=== PATIENT | female | born 1965 | race African-American/Black ===

== ENCOUNTER 2019-01-03 11:56 | Observation (INO) | payer OTHER ==
[2019-01-03 12:42] LABS: #Basophils 0.1 thou/uL (0.0-0.2); #Eosinphils 0.1 thou/uL (0.0-0.7); #Lymphocytes 2.4 thou/uL (1.20-3.40); #Monocytes 0.6 thou/uL (0.11-0.59); #Neutrophils 4.7 thou/uL (1.40-6.50); %Basophils 0.7 % (0.0-1.0); %Lymphocytes 30.4 % (21.0-51.0); %Monocytes 7.5 % (0.0-10.0); %Neutrophils 60.5 % (42.0-75.0); Hemoglobin 13.4 g/dL (12.0-16.0); Mean Corpuscular HGB CONC 32.8 g/dL (32.0-36.0); Mean Corpuscular Hemoglobin 28.4 pg (27.0-31.0); Mean Corpuscular Volume 86.5 fL (78.0-98.0); Mean Platelet Volume 5.8 fL (7.4-10.4); Platelet Count 300 thou/uL (130-400); RBC Distribution Width 13.7 % (11.5-14.5); Red Blood Cell (RBC) Count 4.73 mill/uL (4.20-5.40); White Blood Cell (WBC) Count 7.7 thou/uL (4.8-10.8)
[2019-01-03 12:54] LABS: ALT (SGPT) 16 U/L (8-55); AST (SGOT) 19 U/L (5-34); Alkaline Phosphatase 113 U/L (40-150); Anion Gap 11 mmol/L (10-20); BUN (Urea Nitrogen) 10 mg/dL (9.8-20.1); Bilirubin, Total 0.6 mg/dL (0.2-1.2); Calc. Creatinine Clearance 0 mL/min (70-130); Calcium 9.5 mg/dL (7.8-10.44); Carbon Dioxide 28 mmol/L (22-29); Chloride 105 mmol/L (98-107); Estimated GFR-MDRD 89; Globulin 3.7 g/dL (2.4-3.5); Glucose 97 mg/dL (70-105); Potassium 3.7 mmol/L (3.5-5.1); Protein, Total 7.7 g/dL (6.0-8.3); Sodium 140 mmol/L (136-145)
--- NOTE | 2019-01-03 13:37 | RAD ---
PA AND LATERAL VIEWS CHEST: Date: 01/03/19 HISTORY: Chest pain. FINDINGS: The heart size is normal. The lungs are well expanded without focal areas of consolidation, pneumotho races, or pleural effusions. No acute osseous abnormalities are seen. IMPRESSION: No radiographic evidence of acute cardiopulmonary process. POS: [facility]
[2019-01-03] MEDS ORDERED: Aspirin Chewable 81 MG TAB ONE (13:41)
[2019-01-03] MEDS ORDERED: Nitroglycerin 0.4 MG TAB 1 EACH ONE (13:41)
--- NOTE | 2019-01-03 15:18 | HP ---
PRIMARY CARE PROVIDER: Dr. Kalee Figueroa. CHIEF COMPLAINT: Chest pain. HISTORY OF PRESENT ILLNESS: Ms. Camargo is a pleasant 53-year-old lady, who was seen at [facility] on 01/03/2019. She reports that she had chest pain several years ago. She was seen by Dr. Duncan. She denies having a stress test. 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 She started having chest pain around 7:00 a.m. today. She describes it as right-sided, sharp, nonradiating, 10/10 at its worst, not accompanied by shortness of breath, nausea, lightheadedness, or diaphoresis. She denies any recent long distance travel. She reports that the pain lasted several hours and then subsequently resolved. There has been no recurrence, and the patient is currently pain free. REVIEW OF SYSTEMS: All other systems reviewed and found to be negative. PAST MEDICAL HISTORY: Hypothyroidism. PAST SURGICAL HISTORY: 1. Tubal ligation. 2. Hysterectomy. SOCIAL HISTORY: The patient denies tobacco use, alcohol use, or recreational drug use. FAMILY HISTORY: No family history of premature coronary artery disease. ALLERGIES: NO KNOWN DRUG ALLERGIES. CURRENT MEDICATIONS: Levothyroxine 25 mcg daily. PHYSICAL EXAMINATION: GENERAL: On examination, Ms. Camargo is awake and alert, not in acute distress. VITAL SIGNS: Blood pressure is 130/94, pulse 67, respiratory rate 17, and oxygen saturation 98% on room air. She is afebrile. EYES: No scleral icterus. No conjunctival pallor. ENT: Moist mucosal membranes. No oropharyngeal erythema or exudates. NECK: Supple and nontender. Trachea is midline. RESPIRATORY: Accessory muscles of breathing are not active. Chest wall movements are symmetric bilaterally. Lungs are clear to auscultation without wheeze, rhonchi, or crepitations. CARDIOVASCULAR: S1 and S2 are heard, regular. Peripheral pulses palpable. No carotid bruit. No pericardial rub. ABDOMEN: Soft and nontender. Bowel sounds heard. NEUROLOGIC: Cranial nerves 2 through 12 intact, deep tendon reflexes 2+. MUSCULOSKELETAL: Power is 5/5 in all 4 extremities. SKIN: No rashes or subcutaneous nodules. LYMPHATIC: No cervical lymphadenopathy. PSYCHIATRIC: Normal mood, normal affect, the patient is oriented to person, place, and time. LABORATORY DATA: Ms. Camargo's labs and investigations were reviewed. A 12-lead electrocardiogram shows normal sinus rhythm, no ST changes to suggest an acute coronary syndrome. Chest x-ray does not show any pulmonary infiltrates. She has an unremarkable CBC and an unremarkable comprehensive metabolic profile. Troponin-I is normal. ASSESSMENT AND PLAN: Ms. Camargo is a pleasant 53-year-old lady, who was seen at [facility] on 01/03/2019. Her problem list includes: 1. Chest pain: Ms. Camargo is presenting with chest pain. Etiology is unclear at this time. She will be admitted to the hospital on telemetry monitoring to recheck troponin and for stress test. We will also check D-dimer to rule out pulmonary embolism. I should note that her chest pain is atypical for a cardiac etiology. Also, there was no reproducible tenderness over the chest wall. 2. Hypothyroidism: We will continue Synthroid. Many thanks for allowing me to participate in your patient's care. Please feel free to contact me with any questions or concerns. LEVEL OF RISK: Moderate. LEVEL OF COMPLEXITY: Moderate. Job ID: [id number]
[2019-01-03 15:35] VITALS: BMI 40.0
[2019-01-03] MEDS ORDERED: Nitroglycerin 0.4 MG TAB (25 Tab Bottle) PO PRN (15:51)
[2019-01-03 16:27] LABS: Troponin I Less than 0.010 ng/mL (< 0.028)
[2019-01-03 19:55] LABS: Troponin I Less than 0.010 ng/mL (< 0.028)
[2019-01-04] MEDS ORDERED: Aspirin 325 mg Enteric Coated Tablet PO SCH (09:00)
[2019-01-04 09:34] LABS: #Eosinphils 0.1 thou/uL (0.0-0.7); #Lymphocytes 2.3 thou/uL (1.20-3.40); #Monocytes 0.5 thou/uL (0.11-0.59); #Neutrophils 4.7 thou/uL (1.40-6.50); %Basophils 0.2 % (0.0-1.0); %Eosinophils 1.1 % (0.0-10.0); %Lymphocytes 29.9 % (21.0-51.0); %Monocytes 7.2 % (0.0-10.0); %Neutrophils 61.6 % (42.0-75.0); Hemoglobin 13.7 g/dL (12.0-16.0); Mean Corpuscular HGB CONC 33.1 g/dL (32.0-36.0); Mean Corpuscular Hemoglobin 28.6 pg (27.0-31.0); Mean Corpuscular Volume 86.4 fL (78.0-98.0); Mean Platelet Volume 5.8 fL (7.4-10.4); Platelet Count 285 thou/uL (130-400); RBC Distribution Width 13.5 % (11.5-14.5); White Blood Cell (WBC) Count 7.6 thou/uL (4.8-10.8)
[2019-01-04 09:54] LABS: Anion Gap 11 mmol/L (10-20); BUN (Urea Nitrogen) 10 mg/dL (9.8-20.1); Calc. Creatinine Clearance 126 mL/min (70-130); Calcium 9.6 mg/dL (7.8-10.44); Carbon Dioxide 26 mmol/L (22-29); Chloride 106 mmol/L (98-107); Estimated GFR-MDRD 88; Glucose 88 mg/dL (70-105); Potassium 4.3 mmol/L (3.5-5.1); Sodium 139 mmol/L (136-145)
[2019-01-04] MEDS ORDERED: ADENOSINE 60 MG/20 ML VIAL ONE (09:57)
[2019-01-04] MEDS ORDERED: ISOVUE-370 76%-LOCM 1 ML ONE (10:59)
--- NOTE | 2019-01-04 11:20 | CT ---
CT PULMONARY ANGIOGRAM WITH IV CONTRAST AND 3-D POSTPROCESSING: HISTORY: Chest pain, elevated d-dimer FINDINGS: No filling defects are seen in the pulmonary arterial vasculature to suggest pulmonary embolism. No t horacic aortic aneurysm or dissection is seen. No pleural or pericardial effusions are identified. No pneumothoraces, lobar consolidation or pleural effusions are seen. There is a 3 mm solid nodule in the left upper lobe. There are mild degenerative changes in the spine. IMPRESSION: 1. No CT evidence of pulmonary embolism. 2. A 3 mm left upper lobe lung nodule. In a low-risk patient no routine follow-up is recommended. If the patient is high risk, optional CT scan is recommended at 12 months.
--- NOTE | 2019-01-04 11:37 | NM ---
EXAM: Cardiac SPECT HISTORY: Chest pain PROTOCOL: Stress only, single isotope TYPE OF STRESS: Pharmacologic stress with adenosine was monitored and interpreted by Dr. Wilkins. RADIOPHARMACEUTICAL: 31.6 mCi technetium 99m-sestamibi injected intravenously FINDINGS: Homogeneous tracer distribution is seen in the myocardial segments on the post stress images. Gated SPECT LVEF: 70% Wall motion exam: Normal IMPRESSION: Normal post stress myocardial perfusion scan.
[2019-01-04 12:47] VITALS: BP 140/77; TEMP 97.8
--- NOTE | 2019-01-05 11:12 | EKG ---
Test Reason : CP Blood Pressure : / mmHG Vent. Rate : 065 BPM Atrial Rate : 065 BPM P-R Int : 194 ms QRS Dur : 098 ms QT Int : 426 ms P-R-T Axes : 040 -30 020 degrees QTc Int : 443 ms Normal sinus rhythm Possible Left atrial enlargement Left axis deviation Left ventricular hypertrophy Cannot rule out Septal infarct , age undetermined Abnormal ECG Confirmed by DR. Susan DE LEON ([id number]) on 01/05/2019 11:11:54 AM Referred By: Confirmed By:DR. Susan DE LEON
== END 2019-01-04 14:03 | disposition home or self-care (01) ==
LOC: ERS 11:56 → 2SW 15:29
PROVIDERS: ADMIT Internal Medicine; ATTEND Internal Medicine
DX: R07.9 Chest pain, unspecified (principal); E03.9 Hypothyroidism, unspecified; R91.1 Solitary pulmonary nodule; Z79.899 Other long term (current) drug therapy
CPT/HCPCS: 36415; 71046; 71275; 78452; 80048; 80053; 83735; 83880; 84484; 85025; 85379; 93005; 93017; 94760; A9500; G0378; J0153; Q9966

== ENCOUNTER 2021-05-31 13:01 | Outpatient (CLI) | payer OTHER | END 2021-05-31 13:02 | disposition home or self-care (01) | LOC: BICRAD 13:01 | PROVIDERS: ATTEND Internal Medicine Pulmonary Disease | DX: R06.00 Dyspnea, unspecified (principal) | CPT/HCPCS: 71046 ==

== ENCOUNTER 2021-06-06 03:56 | Emergency (ER) | payer OTHER | END 2021-06-06 05:34 | disposition home or self-care (01) | LOC: ERS 03:56 | DX: M25.551 Pain in right hip (principal) ==

== ENCOUNTER 2022-06-28 13:52 | Emergency (ER) | payer OTHER ==
[2022-06-28] MEDS ORDERED: Ketorolac Tromethamine 30 MG/ML VIAL ONE (15:34)
== END 2022-06-28 17:11 | disposition home or self-care (01) ==
LOC: ERS 13:52
DX: J10.1 Influenza due to other identified influenza virus with other respiratory manifestations (principal); Z20.822 Contact with and (suspected) exposure to COVID-19
CPT/HCPCS: 87804; 93005; 96372; J1885; U0003; U0005

== ENCOUNTER 2023-09-06 10:45 | Outpatient (CLI) | payer OTHER | END 2023-09-06 10:46 | disposition home or self-care (01) | LOC: RAD 10:45 | PROVIDERS: ATTEND Internal Medicine | DX: R06.00 Dyspnea, unspecified (principal) | CPT/HCPCS: 71046 ==